=== PATIENT | male | born 1950 | race African-American/Black ===

== ENCOUNTER 2018-06-11 12:22 | Inpatient (IN) ==
[2018-06-11] MEDS ORDERED: ONDANSETRON 4 MG/2 ML VIAL IV STA (14:30)
[2018-06-11] MEDS ORDERED: MORPHINE 4 MG/1 ML VIAL IV STA (14:30)
[2018-06-11] MEDS ORDERED: SODIUM CHLORIDE 0.9% 1,000 ML IV STA (14:30)
[2018-06-11 14:55] LABS: Basophils % 0.1 % (0.0-0.8); Eosinophils % 0.6 % (0.00-10.9); Immature Granulocytes % 0.1 %; Immature Granulocytes Absolute 0.01 #; Lymphocytes # 1.5 10*3/uL (1.4-4.0); Lymphocytes % 21.9 % (21.2-54.2); Mean Corpuscular HGB Conc 33.3 GM/DL (32-36); Mean Corpuscular Hemoglobin 30 PG (27-34); Mean Corpuscular Volume 90.7 FL (87-102); Mean Platelet Volume 9.7 FL (9.6-12.0); Monocytes # 0.5 10*3/uL (0.11-0.8); Monocytes % 7.3 % (1.7-12.7); Neutrophils # 4.9 10*3/uL (1.4-7.4); Platelet Count 226 T/CUMM (130-400); Red Blood Count 3.97 MC/CUMM (3.8-5.5); Red Cell Distribution Width 14.1 % (9.3-17.3); White Blood Count 6.9 T/CUMM (4-12)
[2018-06-11] MEDS ORDERED: ONDANSETRON 4 MG/2 ML VIAL ONE (14:55)
[2018-06-11] MEDS ORDERED: MORPHINE 4 MG/1 ML VIAL ONE (14:55)
[2018-06-11 15:12] LABS: Albumin 3.2 G/DL (3.4-5.0); Bilirubin,Total 0.4 MG/DL (0.2-1.0); Calcium 8.7 MG/DL (8.5-10.1); Osmolality,Calculated 273.8 MOS/KG (273-304); Potassium 3.9 MMOL/L (3.5-5.1); Total Protein 7.3 G/DL (6.4-8.3)
[2018-06-11] MEDS ORDERED: ONDANSETRON 4 MG/2 ML VIAL IV PRN (15:29)
[2018-06-11] MEDS ORDERED: MORPHINE 4 MG/1 ML VIAL IV PRN (15:29)
[2018-06-11] MEDS ORDERED: BISACODYL 10 MG SUPP RECTAL PRN (15:29)
[2018-06-11] MEDS ORDERED: ALUMINUM/MAGNES/SIMETH MAX STR 30 ML UDCUP PO PRN (15:29)
[2018-06-11] MEDS ORDERED: BISACODYL 5 MG TABLET PO PRN (15:29)
[2018-06-11] MEDS ORDERED: ACETAMINOPHEN 325 MG TABLET PO PRN (15:29)
[2018-06-11] MEDS: LACTATED RINGERS 1,000 ML IV SCH (18:48)
[2018-06-11] MEDS: PIPERACILLIN/TAZOBACTAM 3,375 MG in SODIUM CHLORIDE 0.9% 100 ML IV SCH (18:48)
[2018-06-11] MEDS: PANTOPRAZOLE 40 MG TABLET PO SCH (18:49)
[2018-06-11] MEDS: DOCUSATE SODIUM 100 MG CAPSULE PO SCH (21:02)
[2018-06-12] MEDS: LACTATED RINGERS 1,000 ML IV SCH ×2 (02:48→08:15)
[2018-06-12] MEDS: PIPERACILLIN/TAZOBACTAM 3,375 MG in SODIUM CHLORIDE 0.9% 100 ML IV SCH ×2 (02:48→11:11)
[2018-06-12 05:16] LABS: Basophils % 0.4 % (0.0-0.8); Eosinophils # 0.1 10*3/uL (0.0-0.87); Eosinophils % 1.2 % (0.00-10.9); Hemoglobin 10.2 GM/DL (14.0-18.0); Immature Granulocytes % 0.3 %; Immature Granulocytes Absolute 0.02 #; Lymphocytes # 1.6 10*3/uL (1.4-4.0); Lymphocytes % 22.5 % (21.2-54.2); Mean Corpuscular HGB Conc 32.9 GM/DL (32-36); Mean Corpuscular Hemoglobin 30 PG (27-34); Mean Corpuscular Volume 90.6 FL (87-102); Mean Platelet Volume 10.3 FL (9.6-12.0); Monocytes # 0.5 10*3/uL (0.11-0.8); Monocytes % 6.3 % (1.7-12.7); Neutrophils # 5.1 10*3/uL (1.4-7.4); Neutrophils % 69.3 % (38.7-73.9); Platelet Count 200 T/CUMM (130-400); Red Blood Count 3.42 MC/CUMM (3.8-5.5); Red Cell Distribution Width 14.3 % (9.3-17.3); White Blood Count 7.3 T/CUMM (4-12)
[2018-06-12 05:50] LABS: Calcium 8.2 MG/DL (8.5-10.1); Osmolality,Calculated 275.5 MOS/KG (273-304); Potassium 3.8 MMOL/L (3.5-5.1)
[2018-06-12] MEDS: DOCUSATE SODIUM 100 MG CAPSULE PO SCH (08:15)
[2018-06-12] MEDS: PANTOPRAZOLE 40 MG TABLET PO SCH (08:15)
[2018-06-12] MEDS ORDERED: ENOXAPARIN 40 MG/0.4 ML SYRINGE SUBCUT SCH (09:49)
[2018-06-12 12:26] VITALS: BP 172/79
== END 2018-06-12 14:10 | disposition home or self-care (01) | DRG 395 ==
LOC: N.ED 12:22 → N.EDINP 15:29 → N.3E 18:05
PROVIDERS: ADMIT Surgery; ATTEND Surgery